=== PATIENT | male | born 1990 | race Caucasian/White ===

== ENCOUNTER 2017-03-09 12:17 | Outpatient (CLI) | payer OTHER | END 2017-03-09 12:18 | disposition home or self-care (01) | LOC: LABBT 12:17 | PROVIDERS: ATTEND Neurological Surgery | DX: Z01.818 Encounter for other preprocedural examination (principal); S32.009K Unspecified fracture of unspecified lumbar vertebra, subsequent encounter for fracture with nonunion | CPT/HCPCS: 87081 ==

== ENCOUNTER 2017-03-09 13:00 | Inpatient (IN) | payer OTHER ==
[2017-03-09 12:27] VITALS: BMI 32.5
--- NOTE | 2017-03-14 01:52 | HP ---
HISTORY OF PRESENT ILLNESS: Mr. Rueda is a 26-year-old gentleman a member of our [employer] who h as a protracted course of chronic low back pain with MRI scan that shows some mild degenerative disk disease at L4-L5, no other profound pathology that is apparent. He has attempted physical therapy, m edications, injections and other conservative methods that have really provided him with no significa nt relief and hopes to move forward with a lumbar fusion after recommendation of his pain management physician. He also has a CT scan, which reveals pseudoarthrosis, which were likely accounts for a fa ir amount of this pain. PAST MEDICAL HISTORY: Free of any significant pathology. He has no current medication. ALLERGIES: AMOXICILLIN, and PENICILLIN. PHYSICAL EXAMINATION: NEUROLOGIC: Patient is alert and oriented x3. Gait is mildly antalgic. Lower extremity motor exam is normal. ASSESSMENT: Lumbar back pain with lumbosacral pseudoarthrosis. PLAN: Dr. Benz met with the patient, reviewed imaging and advocated for a pseudoarthrosis resection and if that is not possible then an L5-S1 fusion. He explained to the patient the risks, benefits, and alternatives of both procedures. Patient expressed understanding and would like to move forward with surgery as discussed. I do believe the patient is mentally competent and capable of making medi henok decisions for himself and we will move forward with surgery as planned. Edgardo Ellis PA-C, dictating under Dr. Benz.
[2017-03-14] MEDS ORDERED: Levofloxacin 500 mg/D5W 100 ml Premix Bag ONE ×2 (10:18→12:32)
[2017-03-14] MEDS ORDERED: Clindamycin/D5W 900 mg/50 ml Premix Bag ONE (10:18)
[2017-03-14] MEDS ORDERED: Midazolam HCl 2 mg/2 ml Vial ONE (11:42)
[2017-03-14] MEDS ORDERED: Lidocaine 1% w/Epinephrine 1:200K 30 ML VIAL ONE (11:43)
[2017-03-14] MEDS ORDERED: Thrombin 5000 UNITS/5 ML VIAL ONE (11:43)
[2017-03-14] MEDS ORDERED: Fentanyl 100 MCG/2 ML VIAL ONE ×4 (11:57→14:30)
[2017-03-14] MEDS ORDERED: Bupivacaine PF 0.5% 30 ML VIAL ONE (13:16)
--- NOTE | 2017-03-14 13:52 | PRG ---
DATE OF SERVICE: 03/14/2017 Mr. Rueda is a 26-year-old gentleman, previously evaluated by me in the outpatient clinical setting. His predominant pain is that of low back pain with what I believe is likely to be radiating pain in t he proximal aspect of the buttock, which is more prominent on the right. He underwent nonsurgical th erapy including injections, physical therapy, and medications, and had no substantial relief. His im aging, for the most part, was unremarkable with the exception of a large pseudoarthrosis on the right side at L5-S1. He and I discussed 2 separate options, the first of which was surgically disconnecte d pseudoarthrosis and the second of which was a lumbar fusion. We prepped for both potentially to be done today, but in the end, he and I decided to move forward with disconnection of pseudoarthrosis w ithout fusion. I again reviewed with him all the risks, benefits, and alternatives to the surgical procedure and he did provide informed consent.
[2017-03-14] MEDS ORDERED: Tamsulosin HCl 0.4 MG CAP ONE (14:00)
--- NOTE | 2017-03-14 14:51 | OP ---
DATE OF PROCEDURE: 03/14/2017 SURGEON: Domo Benz M.D. [facility] OPERATOR: Edgardo Ellis PA-C INDICATION: Pain. DIAGNOSIS: Lumbosacral pseudoarthrosis. PROCEDURE: Disconnection of lumbosacral pseudoarthrosis. ANESTHESIA: General. TECHNIQUE: The patient was brought into the operating room and placed under general anesthesia. He was flipped from a supine to a prone position on the operating room table. A linear incision was dimas nned off to the right of midline where the transverse process of L5 articulates with the sacral ala o f S1 on the right. This area was prepped and draped in the usual sterile fashion. Following an appr opriate operative pause, the incision was created. A self-retaining retractor was placed in the woun d for optimal exposure. The transverse process of L5 was identified and confirmed using C-arm fluoro scopy. Rather than proceed with lumbosacral fusion was one option discussed with the patient, we dec ided to move forward with disconnection of the lumbosacral pseudoarthrosis. This was accomplished by using a high-speed cutting drill bit as well as 2, 3 and 4 mm Kerrisons as well as rongeurs. After disconnecting the transverse process the wound was irrigated. Hemostasis was maintained throughout. The wound was then closed in anatomic layers and a pressure dressing was applied. There were no kno wn procedural complications.
[2017-03-14] MEDS ORDERED: Ketorolac Tromethamine 30 MG/ML VIAL ONE (14:56)
[2017-03-14] MEDS ORDERED: PROPOFOL 200 MG/20 ML VIAL ONE (14:56)
[2017-03-14] MEDS ORDERED: Dexamethasone 20 MG/5 ML VIAL ONE (14:56)
[2017-03-14] MEDS ORDERED: Glycopyrrolate 0.2 MG/ML 5 ML SYRINGE ONE (14:56)
[2017-03-14] MEDS ORDERED: Lidocaine 1% PF 5 ML VIAL ONE (14:56)
[2017-03-14] MEDS ORDERED: Ondansetron HCl/PF 4 MG/2 ML Vial ONE (14:56)
[2017-03-14] MEDS ORDERED: Acetaminophen/Codeine 30-300mg Tablet ONE (16:01)
[2017-03-14] MEDS ORDERED: Promethazine HCl 25 MG/ML VIAL ONE (16:08)
== END 2017-03-14 18:39 | disposition home or self-care (01) | DRG 520 ==
LOC: SURG A 03-14 09:18
PROVIDERS: ADMIT Neurological Surgery; ATTEND Neurological Surgery
PROC: 0SB40ZZ Excision of Lumbosacral Disc, Open Approach (ICD-10-PCS; principal; 2017-03-14)
PROC: 8E0WXBF Computer Assisted Procedure of Trunk Region, With Fluoroscopy (ICD-10-PCS; 2017-03-14)
DX: S32.009K Unspecified fracture of unspecified lumbar vertebra, subsequent encounter for fracture with nonunion (principal); M51.36 Other intervertebral disc degeneration, lumbar region; S32.10XK Unspecified fracture of sacrum, subsequent encounter for fracture with nonunion; Z88.0 Allergy status to penicillin; X58.XXXD Exposure to other specified factors, subsequent encounter
CPT/HCPCS: 76001; 96374; J1100; J1885; J1956; J2001; J2250; J2405; J2550; J2704; J3010; J3490; S0020